=== PATIENT | female | born 1995 | race Hispanic/Latino ===

== ENCOUNTER 2022-10-14 22:39 | Emergency (ER) | payer OTHER ==
[~2022-10-14] VITALS: Ht 154.9 cm; Wt 88.0 kg
[2022-10-14 22:47] VITALS: O2SAT 100
[2022-10-14] MEDS ORDERED: IBUPROFEN 600 MG TAB PO STA (22:50)
== END 2022-10-15 01:40 | disposition home or self-care (01) ==
LOC: ER 22:46
DX: S80.01XA Contusion of right knee, initial encounter (principal); W18.39XA Other fall on same level, initial encounter; Y93.01 Activity, walking, marching and hiking; Y92.89 Other specified places as the place of occurrence of the external cause; F31.9 Bipolar disorder, unspecified; F41.9 Anxiety disorder, unspecified
CPT/HCPCS: 99283